=== PATIENT | male | born 1945 | race Caucasian/White ===

== ENCOUNTER → 2016-11-17 | Outpatient (CLI) | payer MEDICARE, OTHER | LOC: LAB 11:43 | PROVIDERS: ATTEND Family Medicine | DX: Z53.9 Procedure and treatment not carried out, unspecified reason (principal) ==

== ENCOUNTER → 2017-02-16 | Outpatient (CLI) | payer MEDICARE, OTHER ==
[~2017-02-16] MED LIST: ASPI325T4 PO; AZIT250T5 PO; CARB200T PO; COLE3.754 PO; D50KC PO; DEME300T PO; EZET10TA5 PO; LEVO112T4 PO; PHEN64.82 PO; ROSU40TA PO
--- NOTE | 2017-02-17 08:59 | Diagnostic Imaging Report ---
PROCEDURE: MRI right joint lower extremity without contrast. TECHNIQUE: Multiplanar, multisequence MR imaging of the right knee was performed without contrast. COMPARISON: None available. INDICATION: Right knee pain. FINDINGS: MENISCI Medial meniscus: There is suggestion of a near-complete radial tear of the medial meniscus near its posterior insertional fibers. There is mild partial extrusion of the body into the medial gutter. Lateral meniscus: Normal. LIGAMENTS ACL: Intact. PCL: Intact. MCL: Intact. LCL: The lateral collateral ligamentous complex is intact. EXTENSOR MECHANISM The extensor mechanism is intact. CARTILAGE Medial compartment: No foci of full-thickness chondromalacia in the medial compartment. There may be age-related degenerative wear throughout the medial compartment articular surface. Lateral compartment: The lateral compartment articular cartilage is preserved without high-grade chondromalacia. Patellofemoral compartment: Low-grade partial-thickness chondral surface fraying and fibrillation throughout the patella. BONE There is a large subchondral insufficiency fracture in the medial femoral condyle which measures approximately 2.8 cm AP and 1.8 cm transverse. This is centered within the central weightbearing portion of the medial femoral condyle. The overlying subchondral bone plate remains intact and there is no articular surface step-off or overlying chondral defect. There is a large amount of amorphous bone marrow edema throughout the medial femoral condyle. Additionally, there is a nondisplaced fracture through the proximal fibular head amorphous bone marrow edema throughout the head. This may be posttraumatic or an additional insufficiency fracture. SOFT TISSUE: Moderate-sized knee joint effusion with mild synovitis. No significant Saleem's cyst. IMPRESSION: 1. Large subchondral insufficiency fracture in the medial femoral condyle. There is no collapse of the subchondral bone plate, although a large volume of bone marrow edema seen throughout the medial femoral condyle. 2. Nondisplaced fracture of the proximal fibular head with associated amorphous bone marrow edema. This may be posttraumatic or an additional insufficiency fracture. 3. Probable near-complete radial tear near the root insertional fibers of the posterior horn of the medial meniscus. Partial extrusion of the body of the medial meniscus into the medial gutter. 4. Moderate-sized knee joint effusion with mild synovitis. 5. No full-thickness chondromalacia in the knee. 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 Dictated by: Dictated on workstation # [id number]
== END ==
LOC: RAD 17:03
PROVIDERS: ATTEND Family Medicine
DX: M25.561 Pain in right knee (principal); M25.461 Effusion, right knee; S72.434A Nondisplaced fracture of medial condyle of right femur, initial encounter for closed fracture; X58.XXXA Exposure to other specified factors, initial encounter
CPT/HCPCS: 73721

== ENCOUNTER → 2017-03-03 | Outpatient (CLI) | payer MEDICARE, OTHER ==
[~2017-03-03] MED LIST changes: -D50KC PO; +[UNRECOGNIZED DRUG - CODE] PO
--- NOTE | 2017-03-03 15:00 | Diagnostic Imaging Report ---
PROCEDURE: US Abdomen, limited. TECHNIQUE: Multiple realtime grayscale images were obtained over the abdomen in various projections. INDICATION: Anemia. FINDINGS: The spleen measures 9.1 x 9.0 x 5.9 cm. The spleen has normal echogenicity and vascularity. There is no perisplenic pathologic fluid. IMPRESSION: Negative ultrasound of the spleen. Dictated by: Dictated on workstation # [id number]
== END ==
LOC: RAD 13:29
PROVIDERS: ATTEND Family Medicine
DX: D64.9 Anemia, unspecified (principal)
CPT/HCPCS: 76705